=== PATIENT | male | born 1995 | race Caucasian/White ===

== ENCOUNTER 2019-05-31 06:30 | Day surgery (SDC) | payer OTHER ==
[2019-05-31] MEDS ORDERED: Propofol 200 MG/20 ML SDV IV ONE (06:31)
[2019-05-31] MEDS ORDERED: Lactated Ringers 1,000 ML IV SCH (06:45)
--- NOTE | 2019-05-31 08:04 | PCM.OPNOTE ---
- General Post-Op/Procedure Note Date of Surgery/Procedure: 05/31/19 Operative Procedure(s): c scope Findings: normal mucosa Pre Op Diagnosis: lower abd pain and diarrhea Post-Op Diagnosis: nl exam Anesthesia Technique: MAC Primary Surgeon: Miguel Ruelas Anesthesia Provider: Francisco Phillips Pathology: random biopsy Complications: None Condition: Good Free Text/Narrative:: see dictation
--- NOTE | 2019-05-31 08:37 | OR ---
DATE OF OPERATION: 05/31/2019 SURGEON: Miguel Ruelas MD PROCEDURE PERFORMED: Colonoscopy with random biopsies. PREOPERATIVE DIAGNOSIS: Lower abdominal pain and frequent loose stools. POSTOPERATIVE DIAGNOSIS: Normal exam. INDICATIONS FOR PROCEDURE: Mr. Strickland is a 24-year-old white male who presents with a history of lower abdominal pain and frequent bowel movements. Workup to date has been negative. As he has had some significant tenderness on exam, he was offered and accepted colonoscopy. DESCRIPTION OF OPERATION: After an excellent IV sedation was administered, digital rectal exam was performed. No marked abnormality was noted. Flexible colonoscope was inserted and advanced to the cecum. Prep was excellent. Attempts to intubate the terminal ileum were unsuccessful. Following findings were noted. Ascending colon, unremarkable. Random biopsies were taken. Transverse colon, unremarkable. Random biopsies were taken. Descending colon, unremarkable. Random biopsies were taken. Sigmoid and rectum, unremarkable. Random biopsies were taken. Colon was deflated as the scope was removed. The patient tolerated the procedure well. Results by letter. /[id number] /MODL
[2019-05-31 08:55] VITALS: BP 124/85; PULSE 87
== END 2019-05-31 08:51 | disposition home or self-care (01) ==
LOC: FB.SDS 06:30
PROVIDERS: ATTEND Surgery
DX: R10.30 Lower abdominal pain, unspecified (principal); R19.7 Diarrhea, unspecified; R19.4 Change in bowel habit; F17.210 Nicotine dependence, cigarettes, uncomplicated; Z91.040 Latex allergy status; Z79.1 Long term (current) use of non-steroidal anti-inflammatories (NSAID)
CPT/HCPCS: 45380; J2704; J7120; 88305